=== PATIENT | female | born 1930 | race Caucasian/White ===

== ENCOUNTER 2017-06-19 19:36 | Emergency (ER) | payer MEDICARE, BC ==
[~2017-06-19] VITALS: Ht 144.8 cm; Wt 40.0 kg
[2017-06-19 20:09] VITALS: BP 146/111; PULSE 71; RESP 16; TEMP 97.5; O2SAT 95
--- NOTE | 2017-06-19 20:54 | RADRPT ---
EXAM DATE/TIME: 06/19/2017 20:44 [place] COMPARISON: No previous studies available for comparison. INDICATIONS : Left ankle pain and laceration on posterior portin of ankle. MEDICAL HISTORY : None. SURGICAL HISTORY : None. ENCOUNTER: Initial ACUITY: 1 day PAIN SCORE: 7/10 LOCATION: Left posterior ankle FINDINGS: Three view exam was performed of the left ankle. The bony structures are in normal alignment. No ev idence of fracture, dislocation. There is extensive laceration to the distal leg posteriorly. The an kle mortise is intact. No radiopaque foreign bodies are seen. Bony mineralization is normal. CONCLUSION: Laceration distal leg posteriorly. Mathieu Wood MD on June 19, 2017 at 20:51 Board Certified Radiologist. This report was verified electronically.
[2017-06-20] MEDS ORDERED: TRIA1CAP6 PO (00:52)
[2017-06-20] MEDS ORDERED: PROP40TA3 PO (00:52)
--- NOTE | 2017-06-20 01:23 | PD ---
HPI Chief Complaint: Laceration/Skin Injury Time Seen by Provider: 01:18 Travel History International Travel<30 days: No Contact w/Intl Traveler<30days: No Traveled to known affect area: No History of Present Illness HPI 87-year-old female presents to the emergency department for complaint of injury to the left lower leg. According the patient just prior to arrival to the emergency department she states that backwards and tripped over a concrete block sustaining a skin tear laceration to the left lower leg posterior aspect. Patient states she delivered on her buttock. Patient states he does have pain and they hips bilaterally with attempted flexion but has been ambulatory. Patient states she did not hit her head did not have loss of consciousness did not injure her neck did not injure her upper back did not injure her chest did not injure her ribs did not injure her abdomen and denies other concerns. Patient does not take blood thinning agent. Patient does not know her tetanus status. Patient is not diabetic. PFSH Past Medical History Narrative Medical Hypertension; no tobacco use; nursing notes reviewed ?: Not Social History Tobacco Use: No Allergies-Medications (Allergen,Severity, Reaction): Coded Allergies: No Known Allergies (Verified Allergy, Unknown, 06/20/17) Reported Meds & Prescriptions Reported Meds & Active Scripts Active Reported Dyrenium (Triamterene) 50 Mg Cap 50 Mg PO DAILY Propranolol (Propranolol HCl) 40 Mg Tab 40 Mg PO Q12HR Review of Systems Except as stated in HPI: all other systems reviewed are Neg General / Constitutional: No: Fever Eyes: No: Visual changes HENT: No: Congestion, Neck Pain Cardiovascular: No: Chest Pain or Discomfort Respiratory: No: Shortness of Breath Gastrointestinal: No: Abdominal Pain Genitourinary: No: Flank Pain Musculoskeletal: Positive: Pain (hips) Skin: Positive Other, No Rash Neurologic: No: Weakness (laceration) Hematologic/Lymphatic: No: Lymph Node Enlargement Physical Exam Narrative GENERAL: Well-developed elderly female in no acute distress no respiratory distress; GCS 15 SKIN: Warm and dry. HEAD: Normocephalic. Atraumatic. EYES: No scleral icterus. No injection or drainage. NECK: Supple, trachea midline. No JVD or lymphadenopathy. No midline tenderness to direct palpation along the cervical spine CARDIOVASCULAR: Regular rate and rhythm without murmurs, gallops, or rubs. RESPIRATORY: Breath sounds equal bilaterally. No accessory muscle use. GASTROINTESTINAL: Abdomen soft, non-tender, nondistended. MUSCULOSKELETAL: No cyanosis, or edema. Attention left lower leg large flap skin tear approximately 10 cm in length bleeding controlled. Intact range of motion flexion extension inversion eversion of the ankle distally foot is neurovascular tendon intact with palpable pulse 2+ to palpation bilateral lower extremities demonstrate normal hip flexion extension and internal/external rotation abduction and abduction with mild tenderness on hip flexion bilaterally distally patient has intact range of motion at the knee ankle and digits. Bilateral radial pulses 2+ to palpation. BACK: Nontender without obvious deformity. No CVA tenderness. Data Data Last Documented VS Vital Signs Date Time Temp Pulse Resp B/P (MAP) Pulse Ox O2 Delivery O2 Flow Rate FiO2 06/19/17 20:09 97.5 71 16 146/111 (123) 95 Orders Orders Ankle, Complete ([id number]) (06/19/17 ) Wound Care (06/20/17 01:23) Tetanus/Diphtheria Tox Adult (Tetanus/Di (06/20/17 01:30) Lidocaine Pf 1% Inj (Xylocaine-Mpf 1% In (06/20/17 01:30) Cephalexin (Keflex) (06/20/17 03:15) Acetaminophen (Tylenol) (06/20/17 03:15) MDM Medical Decision Making Medical Screen Exam Complete: Yes Emergency Medical Condition: Yes Medical Record Reviewed: Yes Interpretation(s) Last Impressions Ankle X-Ray 06/19/17 0000 Signed Impressions: Service Date/Time: Monday, June 19, 2017 20:44 - CONCLUSION: Laceration distal leg posteriorly. Mathieu Wood MD Differential Diagnosis sprain strain fracture and laceration Narrative Course Left ankle x-ray Imaging reveals no acute bony abnormality no subluxation no fracture no retained radiopaque foreign body Tetanus status updated. Laceration was repaired with 5-0 nylon and multiple Steri-Strips for approximation of skin tear; Polysporin bulky dressing applied and first dose of oral antibiotic administered Procedures Procedure Narrative LACERATION LOCATION: Left lower posterior leg LENGTH: 10 cm NUMBER OF STITCHES/CLARISSA: 9 REPAIR: The area of the laceration was prepped with Betadine and sterilely draped. The laceration was infiltrated with 1% lidocaine plain. The wound was copiously irrigated and explored without evidence of foreign body, tendon injury or neurovascular injury. The wound was closed using 5-0 nylon as well as multiple Steri-Strips. This was a single layer repair. A sterile dressing was applied. The patient was advised to keep the dressing clean and dry. Patient tolerated the procedure well. Diagnosis Primary Impression: Skin tear of lower leg without complication Qualified Codes: S81.812A - Laceration without foreign body, left lower leg, initial encounter Referrals: Primary Care Physician 2 days Patient Instructions: General Instructions Additional Instructions: Wound check at 2 days suture removal at 7 days Keep site clean and dry May take acetaminophen/Tylenol as often as every 4-6 hours as needed for minor pain or for fever 100.4F or greater Follow-up with your primary care provider in 2 days for a wound check Return to the emergency department for any concerns or change in condition May apply ice intermittently to area of soft tissue swelling for the next 12-24 hours Elevate lower extremity to decrease swelling Med/Other Pt SpecificInfo: Prescription(s) given Scripts Cephalexin (Keflex) 500 Mg Capsule 500 MG PO Q8H for Infection for 7 Days, CAP 0 Refills Prov: Geetha Butler MD 06/20/17 Disposition: 01 DISCHARGE HOME Condition: Stable Geetha Butler MD Jun 20, 2017 01:23
[2017-06-20] MEDS ORDERED: TETANUS/DIPHTHERIA TOXOID ADULT 0.5 ML VIAL IM ONE (01:30)
[2017-06-20] MEDS ORDERED: LIDOCAINE HCL 1% PF 30 ML VIAL INFIL ONE (01:30)
[2017-06-20] MEDS ORDERED: CEPH-460 PO (03:09)
[2017-06-20] MEDS ORDERED: ACETAMINOPHEN 500 MG CPLT PO ONE (03:15)
[2017-06-20] MEDS ORDERED: CEPHALEXIN MONOHYDRATE 500 MG CAP PO ONE (03:15)
[2017-06-20 04:06] VITALS: BP 138/89
== END 2017-06-20 04:07 | disposition home or self-care (01) ==
LOC: PHED 19:36 → PHEFT 06-20 04:07
DX: S81.812A Laceration without foreign body, left lower leg, initial encounter (principal); I10 Essential (primary) hypertension; W01.0XXA Fall on same level from slipping, tripping and stumbling without subsequent striking against object, initial encounter
CPT/HCPCS: 12004; 73610; 90471; 90714